=== PATIENT | male | born 1960 | race Caucasian/White ===

== ENCOUNTER 2017-01-07 07:30 | Emergency (ER) | payer MEDICARE, OTHER ==
[~2017-01-07] VITALS: Ht 182.9 cm; Wt 93.0 kg
[~2017-01-07 07:30] MED LIST: FLON0.053; LOVA20TA PO; OMEG500C OR; PRIN20TA2 PO; ST JTAB PO; TAB-TAB PO; TOPI25TA2 OR; TOPR25TA2 PO
[2017-01-07 07:35] VITALS: BP 137/92; PULSE 88; RESP 14; TEMP 98.4; O2SAT 96
[2017-01-07 08:30] VITALS: BP 140/86; PULSE 80; RESP 16; O2SAT 96
[2017-01-07] MEDS ORDERED: MULT1TAB84 PO (08:44)
[2017-01-07] MEDS ORDERED: FISH1000 PO (08:44)
[2017-01-07] MEDS ORDERED: TOPA50TA7 PO (08:44)
[2017-01-07] MEDS ORDERED: ASPI-110 PO (08:44)
[2017-01-07] MEDS ORDERED: METO25TA6 PO (08:44)
[2017-01-07] MEDS ORDERED: ATOR10TA15 PO (08:44)
[2017-01-07] MEDS ORDERED: FLUT50SP EACH NARE (08:44)
[2017-01-07] MEDS ORDERED: LISI-515 PO (08:44)
[2017-01-07] MEDS ORDERED: AZIT250T3 PO (08:55)
[2017-01-07] MEDS ORDERED: VENTAER INH (08:55)
[2017-01-07] MEDS ORDERED: PRED-503 PO (08:55)
--- NOTE | 2017-01-07 08:56 | PD ---
HPI Chief Complaint: Respiratory Symptoms Time Seen by Provider: 08:37 Travel History International Travel<30 days: No Contact w/Intl Traveler<30days: No Traveled to known affect area: No History of Present Illness HPI Is a 56-year-old male presents to the emergency department complaining that he has had productive cough and wheezing for the past for 5 days. He had a colonoscopy done 5 days ago, routine screening. He had what sounds like propofol anesthesia with no endotracheal tube. He states once acute nasal cane rule out afterwards he started having sputum production and cough. He said cough productive of a mild amount of sputum since then. No fevers or chills. No shortness of breath. Occasional mild chest pain. Denies any history of tobacco use. Had otherwise been feeling well. History Past Medical History Narrative Medical Hypertension Seizures History of brain tumor Tetanus Vaccination: Unknown Social History Alcohol Use: Yes (WEEK[employer]) Tobacco Use: No Allergies-Medications (Allergen,Severity, Reaction): Coded Allergies: No Known Allergies (Verified , 01/07/17) Reported Meds & Prescriptions Reported Meds & Active Scripts Active Deltasone (Prednisone) 20 Mg Tab 60 Mg PO DAILY 5 Days Azithromycin 250 Mg Tab 250 Mg PO DAILY 4 Days Ventolin Hfa 18 GM Inh (Albuterol Sulfate) 90 Mcg/Act Aer 2 Puff INH Q4-6H PRN Reported Aspirin 81 (Aspirin) 81 Mg Tabdr 81 Mg PO DAILY Topamax (Topiramate) 50 Mg Tab 50 Mg PO BID Fluticasone Nasal [place] 50 Mcg/Act Naspr 50 Mcg EACH NARE HS 50 mcg/spray Metoprolol Succinate ER 24 HR (Metoprolol Succinate) 25 Mg Tab 25 Mg PO HS Lisinopril 20 Mg Tab 20 Mg PO DAILY Atorvastatin (Atorvastatin Calcium) 10 Mg Tab 10 Mg PO HS Multivitamin Adults (Multiple Vitamins W/ Minerals) 1 Tab 1 Tab PO DAILY Fish Oil ([place]-3 Fatty Acids) 1,000 Mg Cap 1,000 Mg PO DAILY Review of Systems Except as stated in HPI: all other systems reviewed are Neg Physical Exam Narrative GENERAL: Well-appearing 56-year-old man, no acute distress. SKIN: Warm and dry. CARDIOVASCULAR: Regular rate and rhythm. No murmur appreciated. RESPIRATORY: No respiratory distress. Prominent coarse wheezing throughout the posterior lung [place] with prolonged expiratory phase. GASTROINTESTINAL: Abdomen soft, non-tender, nondistended. Hepatic and splenic margins not palpable. MUSCULOSKELETAL: No obvious deformities. No edema. NEUROLOGICAL: Awake and alert. No obvious cranial nerve deficits. Motor grossly within normal limits. Normal speech. PSYCHIATRIC: Appropriate mood and affect; insight and judgment normal. Data Data Last Documented VS Vital Signs Date Time Temp Pulse Resp B/P Pulse Ox O2 Delivery O2 Flow Rate FiO2 01/07/17 08:35 16 96 Room Air 01/07/17 08:30 80 140/86 01/07/17 07:35 98.4 Orders Chest, Single Ap (01/07/17 08:49) Sodium Chloride 0.9% Flush (Ns Flush) (01/07/17 09:00) Albuterol-Ipratropium Neb (Duoneb Neb) (01/07/17 09:00) Prednisone (Deltasone) (01/07/17 09:00) Azithromycin (Zithromax) (01/07/17 09:00) MDM Medical Decision Making Medical Screen Exam Complete: Yes Emergency Medical Condition: Yes Interpretation(s) My review of chest x-ray: Negative. Differential Diagnosis Bronchitis, aspiration, bronchiolitis, pneumonia, asthma, COPD, other Narrative Course Medical decision making INITIAL: Is a 56-year-old man who presents to the emergency department complaining of productive cough and wheezing. He has audible wheezing on exam. Denies any history of asthma or smoking. Symptoms started after colonoscopy. He may have had some aspiration event. We'll check x-ray. We'll give him bronchodilators steroids antibiotics. Likely discharge for outpatient follow- up. Diagnosis Primary Impression: Bronchitis Additional Impression: Reactive airway disease Qualified Code: J45.20 - Reactive airway disease, mild intermittent, uncomplicated Additional Instructions: Use inhaler every 4-6 hours until symptoms resolve. Take prednisone as prescribed. Take azithromycin as prescribed. Follow-up with your primary doctor in 3-5 days if you're not completely improved. Return to the emergency department for any new or worsening symptoms. Med/Other Pt SpecificInfo: Prescription(s) given Scripts Prednisone (Deltasone)20 Mg Tab60 Mg PO DAILY 5 Days Prov:Paulie Toussaint MD 01/07/17 Azithromycin 250 Mg [id number] Mg PO DAILY 4 Days Prov:Paulie Toussaint MD 01/07/17 Albuterol 18 GM Inh (Ventolin Hfa 18 GM Inh)90 Mcg/Act Aer2 Puff INH Q4-6H PRN ( SHORTNESS OF BREATH) #1 INHALER Prov:Paulie Toussaint MD 01/07/17 Disposition: 01 DISCHARGE HOME Condition: Stable Paulie Toussaint MD Jan 07, 2017 08:56
[2017-01-07] MEDS ORDERED: SODIUM CHLORIDE 0.9% FLUSH 10 ML FLUSH IVF PRN (09:00)
[2017-01-07] MEDS ORDERED: AZITHROMYCIN 250 MG TAB PO ONE (09:00)
[2017-01-07] MEDS ORDERED: RESP: ALBUTEROL 2.5 MG/IPRATROPIUM 0.5 MG NEB (SCH) INH ONE (09:00)
[2017-01-07] MEDS ORDERED: predniSONE 20 MG TAB PO ONE (09:00)
--- NOTE | 2017-01-07 09:43 | RADHPO ---
EXAM DATE/TIME: 01/07/2017 09:03 [facility] COMPARISON: No previous studies available for comparison. INDICATIONS : Cough, chest pain since Tuesday after colonscopy. MEDICAL HISTORY : None. SURGICAL HISTORY : None. ENCOUNTER: Initial ACUITY: 4 - 6 days PAIN SCORE: 5/10 LOCATION: Bilateral chest FINDINGS: A single view of the chest demonstrates the lungs to be symmetrically aerated without evidence of mas s, infiltrate or effusion. The cardiomediastinal contours are unremarkable. Osseous structures are intact. CONCLUSION: No acute disease. Douglas Dias MD on January 07, 2017 at 9:41 Board Certified Radiologist. This report was verified electronically.
[2017-01-07 09:52] VITALS: BP 136/88
== END 2017-01-07 09:55 | disposition home or self-care (01) ==
LOC: PHED 07:30
DX: J40 Bronchitis, not specified as acute or chronic (principal); J45.909 Unspecified asthma, uncomplicated; I10 Essential (primary) hypertension; R56.9 Unspecified convulsions
CPT/HCPCS: 71010; 94664; 99283; J7512

== ENCOUNTER 2017-04-02 21:00 | Inpatient (IN) | payer OTHER, MEDICARE ==
[~2017-04-02] VITALS: Ht 182.9 cm; Wt 96.2 kg
[~2017-04-02 21:00] MED LIST changes: +ASPI-110 PO; +ATOR10TA15 PO; +AZIT250T3 PO; +FISH1000 PO; -FLON0.053; +FLUT50SP EACH NARE; +LISI-515 PO; -LOVA20TA PO; +METO25TA6 PO; +MULT1TAB84 PO; -OMEG500C OR; +PRED-503 PO; -PRIN20TA2 PO; -ST JTAB PO; -TAB-TAB PO; +TOPA50TA7 PO; -TOPI25TA2 OR; -TOPR25TA2 PO; +VENTAER INH
[2017-04-02 21:03] VITALS: BP 87/51; PULSE 65; RESP 14; TEMP 97.5; O2SAT 95
[2017-04-02 21:12] VITALS: O2SAT 98
[2017-04-02] MEDS ORDERED: SODIUM CHLORIDE 0.9% FLUSH 10 ML FLUSH IVF PRN (21:15)
[2017-04-02] MEDS ORDERED: SODIUM CHLOR 0.9% 1000 ML INJ 1,000 ML IV ONE ×2 (21:15)
[2017-04-02 21:30] LABS: AUTOMATED NEUTROPHIL # 4.1 TH/MM3 (1.8-7.7); BASOPHIL # 0.1 TH/MM3 (0-0.2); BASOPHIL % 1.4 % (0.0-2.0); EOSINOPHIL # 0.3 TH/MM3 (0-0.4); HEMATOCRIT 38.4 % (39.0-51.0); HEMO FLAGS DIFF FINAL; LYMPH % 33.9 % (9.0-44.0); LYMPHOCYTE # 2.9 TH/MM3 (1.0-4.8); MEAN CELL VOLUME 86.7 FL (80.0-100.0); MEAN CORPUSCULAR HEMOGLOBIN 29.6 PG (27.0-34.0); MEAN CORPUSCULAR HGB CONC 34.2 % (32.0-36.0); MONO % 13.1 % (0.0-8.0); NEUT % 48.6 % (16.0-70.0); PLATELET COUNT 230 TH/MM3 (150-450); RED BLOOD COUNT 4.43 MIL/MM3 (4.50-5.90); WHITE BLOOD COUNT 8.5 TH/MM3 (4.0-11.0)
--- NOTE | 2017-04-02 21:36 | RADRPT ---
EXAM DATE/TIME: 04/02/2017 21:05 [facility] COMPARISON: No previous studies available for comparison. INDICATIONS : Syncope. Seizure. MEDICAL HISTORY : None. SURGICAL HISTORY : None. ENCOUNTER: Initial ACUITY: 1 day PAIN SCORE: 0/10 LOCATION: Bilateral chest FINDINGS: There is mild consolidation of the left lung base. Right lung is clear. No pleural effusion or pneumo thorax or pneumothorax on either side. Heart size stable, within normal limits. CONCLUSION: Left base pneumonia. Сергей Soriano MD on April 02, 2017 at 21:32 Board Certified Radiologist. This report was verified electronically.
[2017-04-02 21:45] VITALS: BP 116/70; PULSE 80; RESP 14; O2SAT 99
--- NOTE | 2017-04-02 21:50 | RADRPT ---
EXAM DATE/TIME: 04/02/2017 21:32 [facility] COMPARISON: No previous studies available for comparison. INDICATIONS : Syncopal episode. RADIATION DOSE: 49.37 CTDIvol (mGy) MEDICAL HISTORY : Seizures. Hypertension. Cardiovascular disease SURGICAL HISTORY : Craniotomy. Brain tumor resection ENCOUNTER: Initial ACUITY: 1 day PAIN SCALE: 3/10 LOCATION: cranial TECHNIQUE: Multiple contiguous axial images were obtained of the head. Using automated exposure control and adj ustment of the mA and/or kV according to patient size, radiation dose was kept as low as reasonably a chievable to obtain optimal diagnostic quality images. FINDINGS: CEREBRUM: The ventricles are normal for age. No evidence of midline shift, mass lesion, hemorrhage or acute in farction. No extra-axial fluid collections are seen. Chronic encephalomalacia of the left frontal lo be noted. POSTERIOR FOSSA: The cerebellum and brainstem are intact. The 4th ventricle is midline. The cerebellopontine angle i s unremarkable. EXTRACRANIAL: The visualized portion of the orbits is intact. SKULL: Previous left frontal craniotomy. CONCLUSION: No acute intracranial abnormality. Previous left frontal craniotomy and with chronic postsurgical enc ephalomalacia of the left frontal lobe. No recurrent mass demonstrated. Сергей Soriano MD on April 02, 2017 at 21:45 Board Certified Radiologist. This report was verified electronically.
[2017-04-02 21:58] LABS: ALT (GPT) 26 U/L (12-78); ANION GAP 12 MEQ/L (5-15); AST (GOT) 13 U/L (15-37); BICARBONATE 18.7 MEQ/L (21.0-32.0); BLOOD UREA NITROGEN 16 MG/DL (7-18); CHLORIDE 108 MEQ/L (98-107); GLOMERULAR FILTRATION RATE 55 ML/MIN (>89); MAGNESIUM 2.2 MG/DL (1.5-2.5); POTASSIUM 3.2 MEQ/L (3.5-5.1); SODIUM (NA) 139 MEQ/L (136-145)
[2017-04-02 22:01] LABS: ACETAMINOPHEN 2.9 MCG/ML (10.0-30.0); ALKALINE PHOSPHATASE 70 U/L (45-117); TOTAL BILIRUBIN ADULT 0.3 MG/DL (0.2-1.0)
[2017-04-02 22:05] VITALS: BP 100/65; PULSE 75; RESP 14; O2SAT 99
[2017-04-02 22:35] VITALS: BP 104/72; PULSE 70; RESP 14; O2SAT 100
--- NOTE | 2017-04-02 22:47 | PD ---
HPI Chief Complaint: Seizure Time Seen by Provider: 21:05 Travel History International Travel<30 days: No Contact w/Intl Traveler<30days: No Traveled to known affect area: No History of Present Illness HPI 56-year-old male presents to the emergency department by EMS transport from home where reportedly he was witnessed to have 2 seizures. Patient reportedly has history of seizure disorder. Patient with previous brain tumor. Patient with previous craniotomy. Patient with previous radiation therapy. Patient no longer under treatment for brain tumor. Patient states that he also has history of hypertension. Patient reports he takes Topamax lisinopril and metoprolol but has not taken his evening metoprolol. Patient was noted by EMS to have normal range blood sugar and was hypotensive at the scene. Patient received 1 L normal saline bolus by EMS. Patient has had no further seizure activity per EMS and no administration of Ativan or other medications other than IV fluids. Patient is not reported to have any head injury. Paramedics report that they found the patient sitting on the porch with family members family members are present at this time to provide any further history. Patient reports that he is not having any pain at this time does not report any head pain neck pain back pain chest pain rib pain abdominal pain or extremity pain. Patient was noted to have contusion to the tongue. Patient was not reported to be incontinent but appeared to have some emesis on his shorts. No witnessed emesis per EMS. Patient admits to drinking alcohol today. PFSH Past Medical History Narrative Medical Anxiety hypertension brain tumor/oligodendroglioma, seizure craniotomy; alcohol use: nursing notes reviewed Anxiety: Yes Cardiovascular Problems: Yes High Cholesterol: Yes Gastrointestinal Disorders: Yes Genitourinary: No Hypertension: Yes Musculoskeletal: No Neurologic: Yes Psychiatric: Yes Immunizations Current: Yes Seizures: Yes Tetanus Vaccination: Never Vaccinated Influenza Vaccination: Yes Past Surgical History Neurologic Surgery: Yes (BRAIN TUMOR REMOVAL) Social History Alcohol Use: Yes (WEEK[employer]) Tobacco Use: No Substance Use: No Allergies-Medications (Allergen,Severity, Reaction): Coded Allergies: No Known Allergies (Verified , 04/02/17) Reported Meds & Prescriptions Reported Meds & Active Scripts Active Ventolin Hfa 18 GM Inh (Albuterol Sulfate) 90 Mcg/Act Aer 2 Puff INH Q4-6H PRN Reported Aspirin 81 (Aspirin) 81 Mg Tabdr 81 Mg PO DAILY Topamax (Topiramate) 50 Mg Tab 50 Mg PO BID Fluticasone Nasal [place] 50 Mcg/Act Naspr 50 Mcg EACH NARE HS 50 mcg/spray Metoprolol Succinate ER 24 HR (Metoprolol Succinate) 25 Mg Tab 25 Mg PO HS Lisinopril 20 Mg Tab 20 Mg PO DAILY Atorvastatin (Atorvastatin Calcium) 10 Mg Tab 10 Mg PO HS Review of Systems Except as stated in HPI: all other systems reviewed are Neg General / Constitutional: No: Fever Eyes: No: Visual changes HENT: Positive: Headaches Cardiovascular: No: Chest Pain or Discomfort Respiratory: No: Shortness of Breath Gastrointestinal: No: Vomiting, Abdominal Pain Genitourinary: No: Flank Pain Musculoskeletal: No: Pain Skin: No Rash Neurologic: Positive: Weakness Psychiatric: No: Anxiety Hematologic/Lymphatic: No: Easy Bruising Physical Exam Narrative GENERAL: Well-developed well-nourished male in no acute respiratory distress; GCS is 15 appears mildly drowsy. SKIN: Warm and dry. HEAD: Atraumatic. Normocephalic. EYES: Pupils equal and round. No scleral icterus. No injection or drainage. ENT: No nasal bleeding or discharge. Mucous membranes pink and moist. Contusion to lower lip laceration no tongue contusion. Tympanic membranes no hemotympanum. NECK: Trachea midline. No JVD. Nontender to direct palpation along the midline and no bony step-off; no meningismus. CARDIOVASCULAR: Regular rate and rhythm. RESPIRATORY: No accessory muscle use. Clear to auscultation. Breath sounds equal bilaterally. GASTROINTESTINAL: Abdomen soft, non-tender, nondistended. Hepatic and splenic margins not palpable. MUSCULOSKELETAL: Extremities without clubbing, cyanosis, or edema. No obvious deformities. NEUROLOGICAL: Awake and alert. No obvious cranial nerve deficits. Motor grossly within normal limits. Five out of 5 muscle strength in the arms and legs. Normal speech. PSYCHIATRIC: Appropriate mood and affect; insight and judgment normal. Data Data Last Documented VS Vital Signs Date Time Temp Pulse Resp B/P Pulse Ox O2 Delivery O2 Flow Rate FiO2 04/03/17 00:05 95 16 121/79 100 Nasal Cannula 2 04/02/17 21:03 97.5 Orders Complete Blood Count With Diff (04/02/17 21:05) Alcohol (Ethanol) (04/02/17 21:05) Drug Screen, Random Urine (04/02/17 21:05) Electrocardiogram (04/02/17 ) Ct Brain W/O Iv Contrast(Rout) (04/02/17 ) Blood Glucose (04/02/17 21:05) Ecg Monitoring (04/02/17 21:05) Iv Access Insert/Monitor (04/02/17 21:05) Oximetry (04/02/17 21:05) Comprehensive Metabolic Panel (04/02/17 21:05) Sodium Chloride 0.9% Flush (Ns Flush) (04/02/17 21:15) Urinalysis - C+S If Indicated (04/02/17 21:05) Blood Culture (04/02/17 21:05) Salicylates (Aspirin) (04/02/17 21:05) Tylenol (Acetaminophen) (04/02/17 21:05) Lactic Acid Sepsis Protocol (04/02/17 21:05) Ammonia (04/02/17 21:05) Sodium Chlor 0.9% 1000 Ml Inj (Ns 1000 M (04/02/17 21:15) Sodium Chlor 0.9% 1000 Ml Inj (Ns 1000 M (04/02/17 21:15) Magnesium (Mg) (04/02/17 21:05) Chest, Single Ap (04/02/17 ) Troponin I (04/02/17 21:05) Ceftriaxone Inj (Rocephin Inj) (04/02/17 23:30) Azithromycin Inj (Zithromax Inj) (04/02/17 23:30) Admit Order (Ed Use Only) (04/03/17 ) ^ Saline Lock (04/03/17 00:22) Resp Oxygen Freddy C Titrat 1-4 L (04/03/17 ) Notify Dr: Other (04/03/17 00:22) Sodium Chloride 0.9% Flush (Ns Flush) (04/03/17 09:00) Sodium Chloride 0.9% Flush (Ns Flush) (04/03/17 00:30) Labs Laboratory Tests Test 04/02/17 04/02/17 04/02/17 21:10 23:00 23:50 White Blood Count 8.5 TH/MM3 Red Blood Count 4.43 MIL/MM3 Hemoglobin 13.1 GM/DL Hematocrit 38.4 % Mean Corpuscular Volume 86.7 FL Mean Corpuscular Hemoglobin 29.6 PG Mean Corpuscular Hemoglobin 34.2 % Concent Red Cell Distribution Width 13.0 % Platelet Count 230 TH/MM3 Mean Platelet Volume 10.1 FL Neutrophils (%) (Auto) 48.6 % Lymphocytes (%) (Auto) 33.9 % Monocytes (%) (Auto) 13.1 % Eosinophils (%) (Auto) 3.0 % Basophils (%) (Auto) 1.4 % Neutrophils # (Auto) 4.1 TH/MM3 Lymphocytes # (Auto) 2.9 TH/MM3 Monocytes # (Auto) 1.1 TH/MM3 Eosinophils # (Auto) 0.3 TH/MM3 Basophils # (Auto) 0.1 TH/MM3 CBC Comment DIFF FINAL Differential Comment Sodium Level 139 MEQ/L Potassium Level 3.2 MEQ/L Chloride Level 108 MEQ/L Carbon Dioxide Level 18.7 MEQ/L Anion Gap 12 MEQ/L Blood Urea Nitrogen 16 MG/DL Creatinine 1.35 MG/DL Estimat Glomerular Filtration 55 ML/MIN Rate Random Glucose 144 MG/DL Lactic Acid Level 2.4 mmol/L 2.5 mmol/L Calcium Level 8.1 MG/DL Magnesium Level 2.2 MG/DL Total Bilirubin 0.3 MG/DL Aspartate Amino Transf 13 U/L (AST/SGOT) Alanine Aminotransferase 26 U/L (ALT/SGPT) Alkaline Phosphatase 70 U/L Ammonia 42 MCMOL/L Troponin I LESS THAN 0.02 NG/ML Total Protein 6.0 GM/DL Albumin 3.5 GM/DL Salicylates Level LESS THAN 1.7 MG/DL Acetaminophen Level 2.9 MCG/ML Ethyl Alcohol Level 58 MG/DL Urine Color LIGHT-YELLOW Urine Turbidity CLEAR Urine pH 6.5 Urine Specific [place] 1.009 Urine Protein NEG mg/dL Urine Glucose (UA) NEG mg/dL Urine Ketones NEG mg/dL Urine Occult Blood NEG Urine Nitrite NEG Urine Bilirubin NEG Urine Urobilinogen LESS THAN 2.0 MG/DL Urine Leukocyte Esterase NEG Urine RBC 2 /hpf Urine WBC LESS THAN 1 /hpf Urine Hyaline Casts 7 /lpf Urine Mucus FEW /lpf Microscopic Urinalysis Comment CULT NOT INDICATED Urine Opiates Screen NEG Urine Barbiturates Screen NEG Urine Amphetamines Screen NEG Urine Benzodiazepines Screen NEG Urine Cocaine Screen NEG Urine Cannabinoids Screen POS MDM Medical Decision Making Medical Screen Exam Complete: Yes Emergency Medical Condition: Yes Medical Record Reviewed: Yes Interpretation(s) EKG: Sinus bradycardia rate [address] elevation injury pattern or ectopy noted lactic acid: 2.[address] 04/02/17 0000 Signed Impressions: Service Date/Time: Sunday, April 02, 2017 21:32 - CONCLUSION: No acute intracranial abnormality. 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 No recurrent mass demonstrated. Сергей Soriano MD Chest X-Ray 04/02/17 0000 Signed Impressions: Service Date/Time: Sunday, April 02, 2017 21:05 - CONCLUSION: Left base pneumonia. Сергей Soriano MD Differential Diagnosis Seizure, breakthrough seizure, syncope, alcohol induced seizure, status epilepticus, sepsis Narrative Course Patient reportedly here post seizure witnessed times to contact family members does not recall any prodrome and just feels drowsy at this time although able to relay most of his own history reportedly. Family members are not at bedside. Patient noted to be hypotensive received IV fluids en route by EMS and blood sugar reportedly in normal range per EMS. Additional blood glucose obtained at bedside. EKG performed reveals no acute ST elevation or injury pattern. Patient is noted to be hypotensive additional normal saline bolus 2 L administered no tachycardia. Patient is afebrile. Patient denies any recent febrile illness. Patient denies any pain at this time. Patient sent for imaging CT brain and we'll obtain chest x-ray Patient resting comfortably seizure precautions placed at bedside. Patient sent for CT brain noncontrast reveals no acute abnormality evidence of prior craniotomy with encephalomalacia no mass identified no bleed area CBC was automated differential found be in normal range except for 13% monocytosis nonspecific post seizure chemistries remarkable for bicarbonate 18.7 consistent with possible seizure activity along with mildly elevated ammonia 42. Patient is identified to have serum alcohol of 58. Family at bedside reports that patient has not been eating well lately recently performed a self administered bowel cleanse for possible constipation which caused him to possibly become very dehydrated. According to brother at bedside another brother was with him on the porch when he suddenly became very weak and slumped over he was assisted to the ground without any head trauma. Brother at bedside reports he thought that he briefly stops breathing so he administered one rescue breath and patient immediately awakened and heard family member stating they're calling 911 when she told them to not do that he was fine and then again reportedly slumped and required another reported rescue breaths and again came to and had no further episodes of syncope. Further at bedside states she did not witness any jerking but patient was stiff and with a fixed gaze other further bedside reports patient possibly being monitored ongoing for recent partial seizure/partial complex seizure. Patient does not seem to radiate this patient did have history of generalized tonic-clonic seizures at time of diagnosis of brain tumor was excised approximately [address] Mackay. Plan is to admit patient for observation blood pressure has improved after 3 L of normal saline although patient does remain with generalized weakness. Patient identified by chest x-ray to have possible left lower lobe infiltrate blood cultures had been obtained upon patient's arrival and presumptive IV antibiotic administered. Case discussed with on-call have his physician for generalized weakness possible breakthrough seizure versus syncope versus dehydration with chest x- ray imaging left base infiltrate and history of tonic-clonic seizure with alcohol ingestion. Physician Communication Physician Communication call placed to [facility] Diagnosis Primary Impression: Syncope and collapse Additional Impressions: Dehydration Lung infiltrate H/O tonic-clonic seizures Admitting Information Admitting Physician Requests: Observation Atiya Vicente MD Apr 02, 2017 22:47
[2017-04-02 23:05] VITALS: BP 118/69; PULSE 79; RESP 16; O2SAT 100
[2017-04-02 23:25] LABS: LACTIC ACID GHOST NOT REPORTABLE
[2017-04-02] MEDS ORDERED: AZITHROMYCIN INJ 500 MG in SODIUM CHLOR 0.9% 250 ML INJ 250 ML IV ONE (23:30)
[2017-04-02] MEDS ORDERED: cefTRIAXone INJ 1,000 MG in SODIUM CHLORIDE 0.9% INJ 100 ML IV ONE (23:30)
[2017-04-03] VITALS (11 sets, daily range): BP systolic 121–132; BP diastolic 66–83; PULSE 64–95; RESP 14–20; TEMP 97.9–99; O2SAT 96–100
[2017-04-03 00:08] LABS: AMPHETAMINE, URINE NEG (NEG); BARBITURATES, URINE NEG (NEG); COCAINE, URINE NEG (NEG)
[2017-04-03 00:09] LABS: BLOOD, URINE NEG (NEG); GLUCOSE,URINE NEG (NEG); HYALINE CAST, URINE 7 /lpf (RARE); KETONE, URINE NEG (NEG); MUCUS URINE FEW /lpf (OCC); NITRITE,URINE NEG (NEG); PH, URINE 6.5 (5.0-8.5); URINE COLOR LIGHT-YELLOW (YELLW/STRAW)
[2017-04-03 00:11] LABS: COMMENT (UR) CULT NOT INDICATED; CULTURE IF INDICATED CULT NOT INDICATED
[2017-04-03] MEDS ORDERED: SODIUM CHLORIDE 0.9% FLUSH 10 ML FLUSH IVF PRN (00:30)
[2017-04-03] MEDS ORDERED: POTASSIUM CHLORIDE 20 MEQ CONTROLLED RELEASE TAB PO ONE (00:30)
[2017-04-03] MEDS ORDERED: SENNOSIDES 8.6 MG TAB PO PRN (00:30)
[2017-04-03] MEDS ORDERED: ACETAMINOPHEN/HYDROcodone 325 MG/5 MG TAB PO PRN (00:30)
[2017-04-03] MEDS ORDERED: ACETAMINOPHEN 325 MG TAB PO PRN (00:30)
[2017-04-03] MEDS ORDERED: ONDANSETRON HCL 4 MG/2 ML VIAL IVP PRN (00:30)
[2017-04-03] MEDS ORDERED: BISACODYL 10 MG SUPP RECTAL PRN (00:30)
[2017-04-03] MEDS ORDERED: MAGNESIUM HYDROXIDE SUSP 30 ML CUP PO PRN (00:30)
[2017-04-03] MEDS ORDERED: SODIUM CHLORIDE 0.9% FLUSH 10 ML FLUSH IV FLUSH PRN (00:30)
[2017-04-03] MEDS ORDERED: LACTULOSE SYRUP 20 GM/30 ML CUP PO PRN (00:30)
[2017-04-03] MEDS ORDERED: ACETAMINOPHEN/HYDROcodone 325 MG/10 MG TAB PO PRN (00:30)
[2017-04-03] MEDS ORDERED: ALBUTEROL SULFATE 90 MCG/ACT HFA 18 GM INHALER INH PRN (00:45)
[2017-04-03] MEDS: SODIUM CHLOR 0.9% 1000 ML INJ 1,000 ML IV SCH ×4 (02:45→20:22)
--- NOTE | 2017-04-03 03:31 | HHI.HP ---
[facility] Paulie Galvan MD Admission Diagnosis syncope; h/o seizure; dehydration Diagnoses: (1) Syncope Diagnosis: Principal (2) PNA (pneumonia) Diagnosis: Principal (3) Dehydration Diagnosis: Principal (4) CURTIS (acute kidney injury) Diagnosis: Principal (5) Hypokalemia Diagnosis: Principal (6) Seizure disorder Diagnosis: Principal Travel History International Travel<30 Days: No Contact w/Intl Traveler <30 Da: No Traveled to Known Affected Are: No History of Present Illness This is a 56-year-old male with PMH of Anxiety, HTN, h/o Left Frontal Craniotomy for Tumor Resection and Seizure Disorder was brought to the ER by EMS secondary to AMS. Per initial report, pt noted to have witnessed seizure x2 , however upon further questioning and report from family members, pt had apparent syncopal event. Per pt, had been having ongoing weakness x2-3 wks, no fever, no chills. Today, had a few beers and felt acute weakness but doesn't recall any other events. Upon EMS arrival, pt noted to have BP 80's systolic, s /p 3L IVF total w/ BP 104/72, HR 70. Afebrile. O2 sat 100% on 2L NC. CBC unremarkable. K+ 3.2, creatinine 1.35, previously 0.86 on 03/28/13. Lactic Acid 2.4. Troponin negative. UA negative. Urine Drug Screen positive for Marijuana. Alcohol 58. Tylenol 2.9. Salicylate negative. CT Head w/ no acute findings, previous craniotomy w/ postsurgical changes. CXR w/ LLL PNA. S /p Rocephin/Zithro in ER. Review of Systems Except as stated in HPI: all other systems reviewed are Neg ROS: 14 point review of systems otherwise negative. Past Family Social History Past Medical History PMH: Anxiety, HTN, h/o Left Frontal Craniotomy for Tumor Resection and Seizure Disorder Past Surgical History PAST SURGICAL HISTORY: Craniotomy Allergies: Coded Allergies: No Known Allergies (Verified , 04/02/17) Family History PAST FAMILY HISTORY: Reviewed. No h/o DM or CAD Social History PAST SOCIAL HISTORY: Beer on weekends. Negative for tobacco or drugs. Physical Exam Vital Signs Vital Signs Date Time Temp Pulse Resp B/P Pulse Ox O2 Delivery O2 Flow Rate FiO2 04/03/17 03:01 98.4 85 20 129/75 100 04/03/17 00:05 95 16 121/79 100 Nasal Cannula 2 04/02/17 23:05 79 16 118/69 100 Nasal Cannula 2 04/02/17 22:35 70 14 104/72 100 Nasal Cannula 2 04/02/17 22:05 75 14 100/65 99 Nasal Cannula 2 04/02/17 21:45 80 14 116/70 99 Nasal Cannula 2 04/02/17 21:12 98 Nasal Cannula 2 04/02/17 21:03 97.5 65 14 87/51 95 Physical Exam PE: GENERAL: Middle-aged white male in no acute distress, somnolent but rouses easily and answers questions.. HEENT: PERRLA, EOMI. No scleral icterus or conjunctival pallor. No lid lag or facial droop. CARDIOVASCULAR: Regular rate and rhythm. No obvious murmurs to auscultation. No chest tenderness to palpation. RESPIRATORY: No obvious rhonchi or wheezing. Clear to auscultation. Breath sounds equal bilaterally. GASTROINTESTINAL: Abdomen soft, non-tender, nondistended. BS normal. MUSCULOSKELETAL: Extremities without clubbing, cyanosis, or edema. No obvious deformities. NEUROLOGICAL: Awake, alert and oriented x4. No focal neurologic deficits. Moving both upper and lower extremities spontaneously. Laboratory Laboratory Tests Test 04/02/17 04/02/17 04/02/17 21:10 23:00 23:50 White Blood Count 8.5 Red Blood Count 4.43 Hemoglobin 13.1 Hematocrit 38.4 Mean Corpuscular Volume 86.7 Mean Corpuscular Hemoglobin 29.6 Mean Corpuscular Hemoglobin 34.2 Concent Red Cell Distribution Width 13.0 Platelet Count 230 Mean Platelet Volume 10.1 Neutrophils (%) (Auto) 48.6 Lymphocytes (%) (Auto) 33.9 Monocytes (%) (Auto) 13.1 Eosinophils (%) (Auto) 3.0 Basophils (%) (Auto) 1.4 Neutrophils # (Auto) 4.1 Lymphocytes # (Auto) 2.9 Monocytes # (Auto) 1.1 Eosinophils # (Auto) 0.3 Basophils # (Auto) 0.1 CBC Comment DIFF FINAL Differential Comment Sodium Level 139 Potassium Level 3.2 Chloride Level 108 Carbon Dioxide Level 18.7 Anion Gap 12 Blood Urea Nitrogen 16 Creatinine 1.35 Estimat Glomerular Filtration 55 Rate Random Glucose 144 Lactic Acid Level 2.4 2.5 Calcium Level 8.1 Magnesium Level 2.2 Total Bilirubin 0.3 Aspartate Amino Transf 13 (AST/SGOT) Alanine Aminotransferase 26 (ALT/SGPT) Alkaline Phosphatase 70 Ammonia 42 Troponin I LESS THAN 0.02 Total Protein 6.0 Albumin 3.5 Salicylates Level LESS THAN 1.7 Acetaminophen Level 2.9 Ethyl Alcohol Level 58 Urine Color LIGHT-YELLOW Urine Turbidity CLEAR Urine pH 6.5 Urine Specific [place] 1.009 Urine Protein NEG Urine Glucose (UA) NEG Urine Ketones NEG Urine Occult Blood NEG Urine Nitrite NEG Urine Bilirubin NEG Urine Urobilinogen LESS THAN 2.0 Urine Leukocyte Esterase NEG Urine RBC 2 Urine WBC LESS THAN 1 Urine Hyaline Casts 7 Urine Mucus FEW Microscopic Urinalysis Comment CULT NOT INDICATED Urine Opiates Screen NEG Urine Barbiturates Screen NEG Urine Amphetamines Screen NEG Urine Benzodiazepines Screen NEG Urine Cocaine Screen NEG Urine Cannabinoids Screen POS Date/Time Procedure Status Source Growth 04/02/17 21:10 Aerobic Blood Culture Received Blood Peripheral Pending 04/02/17 21:10 Anaerobic Blood Culture Received Blood Peripheral Pending Result Diagram: 04/02/17210904/02/172109 Assessment and Plan Problem List: (1) Syncope ICD Code: R55 Status: Acute (2) PNA (pneumonia) ICD Code: J18.9 Status: Acute (3) CURTIS (acute kidney injury) ICD Code: N17.9 Status: Acute (4) Dehydration ICD Code: E86.0 Status: Acute (5) Seizure disorder ICD Code: G40.909 Status: Acute Assessment and Plan A/P: 1. Syncope: Likely secondary to dehydration, BP upon EMS arrival 80's systolic , s/p IVF w/ improvement. Admit for Observation, telemetry. Initial trop negative, will check serial cardiac enzymes, check Echo, IVF for hydration. 2. PNA: CXR w/ LLL PNA, images reviewed by me. S/p Rocephin/Zithro in ER, will continue w/ IV Abx. 3. CURTIS: Creatinine 1.35, previously 0.85 on 03/28/13, U/a negative for UTI, IVF for hydration, repeat labs in am. 4. Dehydration: As above, GFR 55, Creatinine elevated, continue w/ IVF. 5. Seizure Disorder: h/o Left Frontal Craniotomy for tumor resection 10yrs ago , on Topamax for prophylaxis, compliant w/ meds, no apparent seizure x10yrs, initial report of seizure activity x2, however unclear if accurate. CT Head w/ no acute findings, left craniotomy w/ postsurgical changes, images reviewed by me. Continue home medications. Seizure Precautions. 6. DVT Prophylaxis: SCD/Teds. 7. Social work for d/c planning as needed. 8. Case discussed w/ ER physician at length Elisa Vera MD Apr 03, 2017 03:31
[2017-04-03] MEDS ORDERED: SODIUM CHLORIDE 0.9% FLUSH 10 ML FLUSH IV FLUSH SCH (09:00)
[2017-04-03] MEDS: PIPERACIL-TAZO 3.375 GM PREMIX 50 ML IV SCH ×3 (09:16→21:13)
[2017-04-03] MEDS: TOPIRAMATE 25 MG TAB PO SCH ×2 (09:17→21:14)
[2017-04-03] MEDS: SODIUM CHLORIDE 0.9% FLUSH 10 ML FLUSH IV FLUSH SCH ×2 (09:17→21:14)
[2017-04-03] MEDS: DOCUSATE SODIUM 50 MG/SENNA 8.6 MG TAB PO SCH ×2 (09:17→21:14)
--- NOTE | 2017-04-03 10:09 | HHI.PR ---
Subjective Remarks Follow-up for syncope. The patient states that yesterday he was feeling lightheaded and dizzy like he was going to pass out, and subsequently lost consciousness. He states he was told he was out for about 2 minutes. He denies any prolonged confusion. He denies any chest pain or shortness of breath. He denies any recent illness, fever, chills, cough. He does report a history of partial seizures and migraines that manifested as extremity tingling. He states that he has been well controlled on his Topamax. He denies any recent medication changes. He does state that he did have three 16 ounce beers yesterday, which is typical for him only on the weekends. He worked with PT today and denies any problems with ambulation, lightheadedness, or dizziness. His neurologist is at . Objective Vitals Vital Signs Date Time Temp Pulse Resp B/P Pulse Ox O2 Delivery O2 Flow Rate FiO2 04/03/17 08:32 68 129/66 125/75 04/03/17 07:54 100 Nasal Cannula 2.00 04/03/17 07:45 99.0 76 18 121/77 100 04/03/17 06:44 Nasal Cannula 2.00 04/03/17 03:30 70 04/03/17 03:01 98.4 85 20 129/75 100 04/03/17 00:05 95 16 121/79 100 Nasal Cannula 2 04/02/17 23:05 79 16 118/69 100 Nasal Cannula 2 04/02/17 22:35 70 14 104/72 100 Nasal Cannula 2 04/02/17 22:05 75 14 100/65 99 Nasal Cannula 2 04/02/17 21:45 80 14 116/70 99 Nasal Cannula 2 04/02/17 21:12 98 Nasal Cannula 2 04/02/17 21:03 97.5 65 14 87/51 95 I/O 04/02/17 04/02/17 04/02/17 04/03/17 04/03/17 04/03/17 07:00 15:00 23:00 07:00 15:00 23:00 Output Total 700 ml Balance -700 ml Output Urine Total 700 ml Result Diagram: 04/02/17210904/02/172109 Imaging Last Impressions Head CT 04/02/17 0000 Signed Impressions: Service Date/Time: Sunday, April 02, 2017 21:32 - CONCLUSION: No acute intracranial abnormality. 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 No recurrent mass demonstrated. Сергей Soriano MD Chest X-Ray 04/02/17 0000 Signed Impressions: Service Date/Time: Sunday, April 02, 2017 21:05 - CONCLUSION: Left base pneumonia. Сергей Soriano MD Objective Remarks GENERAL: Well-developed well-nourished. In no acute distress. SKIN: Warm and dry. No lesions noted. HEENT: Normocephalic. Pupils equal and round. Mucous membranes pink and moist. CARDIOVASCULAR: Regular rate and rhythm. No murmur appreciated. RESPIRATORY: No accessory muscle use. Clear to auscultation. Left basilar crackles. GASTROINTESTINAL: Abdomen soft, non-tender, nondistended. Bowel sounds x4. MUSCULOSKELETAL: No obvious deformities. No clubbing or cyanosis. No edema. NEUROLOGICAL: Awake and alert. No focal neurological deficits. Moves upper and lower extremities spontaneously. Normal speech. PSYCHIATRIC: Appropriate mood and affect; insight and judgment normal. A/P Problem List: (1) Syncope ICD Code: R55 Status: Acute (2) PNA (pneumonia) ICD Code: J18.9 Status: Acute (3) CURTIS (acute kidney injury) ICD Code: N17.9 Status: Acute (4) Dehydration ICD Code: E86.0 Status: Acute (5) Seizure disorder ICD Code: G40.909 Status: Acute Assessment and Plan 56-year-old male with PMH of Anxiety, HTN, h/o Left Frontal Craniotomy for Tumor Resection and Seizure Disorder who presented after syncopal episode Syncope: Possibly secondary to dehydration vs seizure vs other. Reviewed: Troponin negative 2, trending. Creatinine 1.35, bicarbonate 18.7, glucose 144, lactic acid 2.5. Alcohol 58. UDS positive for cannabis. Head CT with previous craniotomy and postsurgical encephalomalacia of the left frontal lobe, no acute findings. EKG with NSR, rate 58, no significant change from previous EKG in 2003. -Echocardiogram. -EEG. -Monitor on telemetry. -Consult neurology Possible aspiration pneumonitis: Asymptomatic. CXR personally reviewed w/ vague LLL infiltrate. Afebrile with no leukocytosis. Cover with IV Zosyn for now, plan for transition to oral Levaquin if no further signs of infection or respiratory symptoms. Incentive spirometry. Albuterol as needed. CURTIS: Creatinine 1.35, previously 0.85 on 03/28/13. IVF for hydration, repeat labs pending. Seizure Disorder/migraines: h/o Left Frontal Craniotomy for tumor resection 10yrs ago, on Topamax for prophylaxis, compliant w/ meds, no apparent seizure x10yrs. Continue home medications. Seizure Precautions. Neurology consulted as above. Elevated ammonia: Ammonia 42. LFTs essentially within normal limits. Suspect secondary to dehydration. Repeat ammonia level. Hypertension: BP was soft at admission. The patient is not orthostatic. Holding lisinopril with CURTIS. Resume metoprolol as tolerated. Monitor. Hypokalemia: Potassium 3.2 at admission. Replaced in the ED. Magnesium within normal limits. Repeat labs pending. DVT Prophylaxis: SCD/Teds. Discharge Planning D/W case management. Meets inpatient criteria. Gage Macdonald Apr 03, 2017 10:08
[2017-04-03 10:59] LABS: AUTOMATED NEUTROPHIL # 5.9 TH/MM3 (1.8-7.7); BASOPHIL % 0.4 % (0.0-2.0); EOSINOPHIL # 0.1 TH/MM3 (0-0.4); EOSINOPHIL % 1.4 % (0.0-4.0); HEMATOCRIT 39.7 % (39.0-51.0); HEMO FLAGS DIFF FINAL; LYMPH % 13.3 % (9.0-44.0); MEAN CELL VOLUME 87.3 FL (80.0-100.0); MEAN CORPUSCULAR HEMOGLOBIN 29.4 PG (27.0-34.0); MEAN CORPUSCULAR HGB CONC 33.7 % (32.0-36.0); MONO % 9.6 % (0.0-8.0); NEUT % 75.3 % (16.0-70.0); PLATELET COUNT 172 TH/MM3 (150-450); RED BLOOD COUNT 4.55 MIL/MM3 (4.50-5.90); RED CELL DISTRIBUTION WIDTH 12.8 % (11.6-17.2); WHITE BLOOD COUNT 7.8 TH/MM3 (4.0-11.0)
[2017-04-03 11:15] LABS: ANION GAP 8 MEQ/L (5-15); AST (GOT) 13 U/L (15-37); BICARBONATE 22.1 MEQ/L (21.0-32.0); BLOOD UREA NITROGEN 11 MG/DL (7-18); CHLORIDE 114 MEQ/L (98-107); POTASSIUM 3.9 MEQ/L (3.5-5.1); SODIUM (NA) 144 MEQ/L (136-145)
[2017-04-03 11:21] LABS: ALKALINE PHOSPHATASE 79 U/L (45-117); ALT (GPT) 24 U/L (12-78); GLOMERULAR FILTRATION RATE 77 ML/MIN (>89); TOTAL BILIRUBIN ADULT 0.5 MG/DL (0.2-1.0)
--- NOTE | 2017-04-03 12:17 | EKG ---
Date Performed: 04/02/2017 Time Performed: 21:08:31 PTAGE: 56 years EKG: SINUS BRADYCARDIA BORDERLINE ECG PREVIOUS TRACING : 05/16/2004 09.51 COMPARED WITH PREVIOUS EKG T-WAVE ABNORMALITIES ARE NO ORLY JORGE PRESENT DOCTOR: Clifton Marte Interpretating Date/Time 04/03/2017 12:13:33
--- NOTE | 2017-04-03 15:53 | ECHRPT ---
Indication: Cardiomyopathy, unspecified CONCLUSIONS Normal left ventricular size and wall thickness. The left ventricular systolic function is normal wi th an estimated ejection fraction in the range of 60-65%. Left ventricular diastolic function parameters a re normal. BP: 121 / 77 HR: 76 Rhythm: Sinus MEASUREMENTS (Male / Female) Normal Values Technical Quality:Good 2D ECHO LV Diastolic Diameter PLAX 4.9 cm 4.2 - 5.9 / 3.9 - 5.3 cm LV Systolic Diameter PLAX 3.6 cm IVS Diastolic Thickness 1.1 cm 0.6 - 1.0 / 0.6 - 0.9 cm LVPW Diastolic Thickness 1.1 cm 0.6 - 1.0 / 0.6 - 0.9 cm LV Relative Wall Thickness 0.5 LVOT Diameter 2.4 cm M-MODE Aortic Root Diameter MM 3.6 cm LA Systolic Diameter MM 2.9 cm LA Ao Ratio MM 0.8 AV Cusp Separation MM 2.1 cm DOPPLER AV Peak Velocity 119.0 cm/s AV Peak Gradient 5.7 mmHg AI Peak Velocity 244.0 cm/s AI Peak Gradient 23.8 mmHg AI Pressure Half Time 671.0 ms LVOT Peak Velocity 99.2 cm/s LVOT Peak Gradient 3.9 mmHg AV Area Cont Eq pk 3.8 cm MR Peak Velocity 305.0 cm/s MR Peak Gradient 37.2 mmHg Mitral E Point Velocity 84.9 cm/s Mitral A Point Velocity 80.0 cm/s Mitral E to A Ratio 1.1 LV E' Lateral Velocity 8.9 cm/s Mitral E to LV E' Lateral Ratio 9.6 LV E' Septal Velocity 9.9 cm/s Mitral E to LV E' Septal Ratio 8.5 PV Peak Velocity 90.9 cm/s PV Peak Gradient 3.3 mmHg FINDINGS LEFT VENTRICLE Normal left ventricular size and wall thickness. The left ventricular systolic function is normal wi th an estimated ejection fraction in the range of 60-65%. Left ventricular diastolic function parameters a re normal. Structurally normal mitral valve. Trace mitral valve regurgitation. RIGHT VENTRICLE Normal right ventricular size and systolic function. LEFT ATRIUM The left atrial size is normal. RIGHT ATRIUM The right atrial size is normal. ATRIAL SEPTUM Normal atrial septal thickness without atrial level shunting by limited color doppler interrogation. AORTA The aortic root and proximal ascending aorta are normal in size on limited imaging. MITRAL VALVE Structurally normal mitral valve. Trace mitral valve regurgitation. AORTIC VALVE Trileaflet aortic valve. No aortic valve stenosis or regurgitation. TRICUSPID VALVE Structurally normal tricuspid valve. No tricuspid valve stenosis or regurgitation. PULMONARY VALVE The pulmonary valve is not well visualized. VESSELS The inferior vena cava is normal in size. PERICARDIUM No pericardial effusion. Amari Patel MD, FACC, [facility] (Electronically Signed) Final Date:03 April 2017 15:52 Amended: 05 April 2017 14:10
--- NOTE | 2017-04-03 16:23 | MB ---
cc: JAYMIE CARRERA M.D. DATE OF CONSULTATION: 04/03/2017. REASON FOR CONSULTATION: Syncope versus seizure. 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 Initial reports say that they witnessed two seizures; however, they questioned family members and there was a syncope. He had a few, three 16-ounce beers. He cannot recall if he felt lightheaded prior but he was noted to have a systolic blood pressure in the 80s. They gave him three liters of fluid and it came up to 104/72, heart rate of 70. Currently he is having an EEG. He offers no complaints of headaches, chest pain, shortness of breath, weakness in his arms or legs. CT shows no acute findings, only previous craniotomy with postsurgical changes. Chest x-ray shows left lower lobe possible pneumonia. They gave him Rocephin and Zithromax in the emergency room. PAST MEDICAL HISTORY: As stated. SOCIAL HISTORY: Drinks beer on the weekends. No tobacco. FAMILY HISTORY: Noncontributory. ALLERGIES: NONE. MEDICATIONS: He does take, he states, medication-al: 1. Topiramate 50 milligrams twice a day. PHYSICAL EXAMINATION: VITAL SIGNS: Temperature is 98.6, pulse 67, respiratory rate 17, blood pressure 132/80, satting at 98% room air. NECK: The neck is supple. HEART: Regular. NEUROLOGICAL EXAMINATION: He is awake, alert, he is fluent. His pupils are reactive. Face symmetrical. Tongue midline. Motor-al he does not exhibit any significant weakness or drift or leg lag. Cerebellar testing normal. Toes withdraws. Gait is withheld. Sensory normal. LABS: CBC is unremarkable. Neutrophil percentage 75.8. Chemistries: Ammonia is 41. Lactic acid was 2.5. GFR 77. Glucose 126. Calcium 8.2. CK was 90. Urine unremarkable. Toxicology positive for cannabinoids. Ethanol level was 58. Tylenol level was 2.9. Salicylate level was 1.7. IMAGING STUDIES: Chest x-ray shows left base pneumonia. CT head shows no acute findings. Left craniotomy with chronic postsurgical encephalomalacia left frontal lobe. The last MRI was in April of 2004 and it showed craniotomy changes as well. IMPRESSION: A 56-year-old man with either seizure versus syncope. He is having an EEG. 1. Will get an echocardiogram.. 2. Will continue to monitor him neuro status-al. 3. Treat him for his aspiration pneumonia. 4. Put him back on his topiramate. 5. He needs to start drinking. 6. He is positive for cannabinoids so would recommend risk factor modification for all substances such as alcohol, tobacco, marijuana at this point in time unless it is obtained legally. However alcohol may lower his threshold for seizures given that there is a craniotomy and scar from his surgery. 7. Maintain adequate hydration. 8. His vitals are stable now. He might have been a bit dehydrated. Have him follow up with his doctors in [place] this week. MD ANAMARIA Wyman/BETY /3:19 PM /4:17 PM
--- NOTE | 2017-04-03 17:53 | MG ---
cc: JAYMIE CARREAR M.D. Lab No: [id number] Date: Age: 56 Sex: M Race: REFERRING: SORAYA Macdonald. ROOM: -. Awake, drowsy asleep study. Photic stimulation. Hyperventilation. EEG ___ showed slowing in the left hemisphere. The patient had a mass over the left hemisphere and craniotomy performed a number of years ago. He came in with either syncope or seizure. He is only on topiramate 50 mg b.i.d. He had three beers with an elevated ethanol level and cannabinoids in his urine drug screen. DESCRIPTION OF RECORD: Some mild slowing from a theta frequency. Some left frontal craniotomy. There is some what looks like sharp waves over the left hemisphere which may be from the breach rhythm versus phase reversal. Photic stimulation has a driving response seen. Hyperventilation did not change the background. There is some mild slowing. IMPRESSION: Somewhat slow EEG due to possible encephalopathic process. There is abnormality over the left frontal region due to a craniotomy defect. This does not look like ongoing seizure activity. Some mild slowing only could be encephalopathic. Clinical correlation. MD ANAMARIA Wyman/BETY /5:30 PM /5:54 PM
[2017-04-03] MEDS ORDERED: METOPROLOL SUCCINATE 25 MG EXTENDED RELEASE TAB PO SCH (21:00)
[2017-04-04] MEDS ORDERED: cefTRIAXone INJ 1,000 MG in SODIUM CHLORIDE 0.9% INJ 100 ML IV SCH ×2
[2017-04-04] MEDS ORDERED: AZITHROMYCIN INJ 500 MG in SODIUM CHLOR 0.9% 250 ML INJ 250 ML IV SCH (01:00)
[2017-04-04] MEDS: PIPERACIL-TAZO 3.375 GM PREMIX 50 ML IV SCH ×2 (03:36→08:15)
[2017-04-04 04:00] VITALS: BP 129/82; PULSE 62; RESP 16; TEMP 96.7; O2SAT 96
[2017-04-04] MEDS: SODIUM CHLOR 0.9% 1000 ML INJ 1,000 ML IV SCH (05:45)
[2017-04-04] MEDS: DOCUSATE SODIUM 50 MG/SENNA 8.6 MG TAB PO SCH (08:17)
[2017-04-04] MEDS: TOPIRAMATE 25 MG TAB PO SCH (08:17)
[2017-04-04] MEDS: SODIUM CHLORIDE 0.9% FLUSH 10 ML FLUSH IV FLUSH SCH (08:18)
[2017-04-04 08:33] VITALS: BP_SYST 140; BP_SYST 145; BP_SYST 160; BP_DIAS 83; BP_DIAS 88; BP_DIAS 91; PULSE 63; RESP 18; TEMP 96.6; O2SAT 95
[2017-04-04 09:20] VITALS: O2SAT 98
--- NOTE | 2017-04-04 10:16 | HHI.DS ---
Discharge Summary Admission Date Apr 03, 2017 at 14:54 Discharge Date: Apr 04, 2017 Admitting Diagnosis syncope; h/o seizure; dehydration (1) Syncope ICD Code: R55 Diagnosis: Principal (2) PNA (pneumonia) ICD Code: J18.9 Diagnosis: Principal (3) CURTIS (acute kidney injury) ICD Code: N17.9 Diagnosis: Secondary (4) Dehydration ICD Code: E86.0 Diagnosis: Secondary (5) Seizure disorder ICD Code: G40.909 Diagnosis: Secondary Procedures none Brief History - From Admission This is a 56-year-old male with PMH of Anxiety, HTN, h/o Left Frontal Craniotomy for Tumor Resection and Seizure Disorder was brought to the ER by EMS secondary to AMS. Per initial report, pt noted to have witnessed seizure x2 , however upon further questioning and report from family members, pt had apparent syncopal event. Per pt, had been having ongoing weakness x2-3 wks, no fever, no chills. Today, had a few beers and felt acute weakness but doesn't recall any other events. Upon EMS arrival, pt noted to have BP 80's systolic, s /p 3L IVF total w/ BP 104/72, HR 70. Afebrile. O2 sat 100% on 2L NC. CBC unremarkable. K+ 3.2, creatinine 1.35, previously 0.86 on 03/28/13. Lactic Acid 2.4. Troponin negative. UA negative. Urine Drug Screen positive for Marijuana. Alcohol 58. Tylenol 2.9. Salicylate negative. CT Head w/ no acute findings, previous craniotomy w/ postsurgical changes. CXR w/ LLL PNA. S /p Rocephin/Zithro in ER. CBC/BMP: 04/03/17 1042 04/03/17 1042 Significant Findings Laboratory Tests Test 04/02/17 04/02/17 04/02/17 04/03/17 21:10 23:00 23:50 02:40 Red Blood Count 4.43 MIL/MM3 (4.50-5.90) Hematocrit 38.4 % (39.0-51.0) Monocytes (%) (Auto) 13.1 % (0.0-8.0) Monocytes # (Auto) 1.1 TH/MM3 (0-0.9) Potassium Level 3.2 MEQ/L (3.5-5.1) Chloride Level 108 MEQ/L (98-107) Carbon Dioxide Level 18.7 MEQ/L (21.0-32.0) Creatinine 1.35 MG/DL (0.60-1.30) Estimat Glomerular Filtration 55 ML/MIN (>89) Rate Random Glucose 144 MG/DL (74-106) Lactic Acid Level 2.4 mmol/L 2.5 mmol/L (0.4-2.0) (0.4-2.0) Calcium Level 8.1 MG/DL (8.5-10.1) Aspartate Amino Transf 13 U/L (15-37) (AST/SGOT) Ammonia 42 MCMOL/L (11-32) Troponin I LESS THAN 0.02 LESS THAN 0.02 NG/ML NG/ML (0.02-0.05) (0.02-0.05) Total Protein 6.0 GM/DL (6.4-8.2) Salicylates Level LESS THAN 1.7 MG/DL (2.8-20.0) Acetaminophen Level 2.9 MCG/ML (10.0-30.0) Ethyl Alcohol Level 58 MG/DL (0-5) Urine Mucus FEW /lpf (OCC) Urine Cannabinoids Screen POS (NEG) Test 04/03/17 10:42 Neutrophils (%) (Auto) 75.3 % (16.0-70.0) Monocytes (%) (Auto) 9.6 % (0.0-8.0) Chloride Level 114 MEQ/L (98-107) Estimat Glomerular Filtration 77 ML/MIN (>89) Rate Random Glucose 126 MG/DL (74-106) Calcium Level 8.2 MG/DL (8.5-10.1) Aspartate Amino Transf 13 U/L (15-37) (AST/SGOT) Ammonia 41 MCMOL/L (11-32) Troponin I LESS THAN 0.02 NG/ML (0.02-0.05) Total Protein 5.7 GM/DL (6.4-8.2) Albumin 3.3 GM/DL (3.4-5.0) Imaging Last Impressions Head CT 04/02/17 0000 Signed Impressions: Service Date/Time: Sunday, April 02, 2017 21:32 - CONCLUSION: No acute intracranial abnormality. 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 No recurrent mass demonstrated. Сергей Soriano MD Chest X-Ray 04/02/17 0000 Signed Impressions: Service Date/Time: Sunday, April 02, 2017 21:05 - CONCLUSION: Left base pneumonia. Сергей Soriano MD PE at Discharge GENERAL: Well-developed well-nourished. In no acute distress. SKIN: Warm and dry. No lesions noted. HEENT: Normocephalic. Pupils equal and round. Mucous membranes pink and moist. CARDIOVASCULAR: Regular rate and rhythm. No murmur appreciated. RESPIRATORY: No accessory muscle use. Clear to auscultation. Left basilar crackles. GASTROINTESTINAL: Abdomen soft, non-tender, nondistended. Bowel sounds x4. MUSCULOSKELETAL: No obvious deformities. No clubbing or cyanosis. No edema. NEUROLOGICAL: Awake and alert. No focal neurological deficits. Moves upper and lower extremities spontaneously. Normal speech. PSYCHIATRIC: Appropriate mood and affect; insight and judgment normal. Pt update on day of discharge In bed,. No fever or chills. No cough. Satting well on room air. No n/v/d/c. No dizziness or lightheadedness. No seizure. Ambulated without difficulty Hospital Course 56-year-old male with PMH of Anxiety, HTN, h/o Left Frontal Craniotomy for Tumor Resection and Seizure Disorder who presented after syncopal episode Syncope: Possibly secondary to dehydration vs seizure vs other. Reviewed: Troponin negative 2, trending. Creatinine 1.35, bicarbonate 18.7, glucose 144, lactic acid 2.5. Alcohol 58. UDS positive for cannabis. Head CT with previous craniotomy and postsurgical encephalomalacia of the left frontal lobe, no acute findings. EKG with NSR, rate 58, no significant change from previous EKG in 2004. -Echocardiogram rev normal EF 55% -EEG no acute abn, changes constistent to previous injury, no seizure -Monitor on telemetry. -Consult neurology, appreciate recommendations. Patient to follow up as OP with his neuro in [place] Possible aspiration pneumonitis: Asymptomatic. CXR personally reviewed w/ vague LLL infiltrate. Afebrile with no leukocytosis. Cover with IV Zosyn for now, plan for transition to oral Levaquin if no further signs of infection or respiratory symptoms. Incentive spirometry. Albuterol as needed. CURTIS: Creatinine 1.35, previously 0.85 on 03/28/13. IVF for hydration, repeat labs pending. Seizure Disorder/migraines: h/o Left Frontal Craniotomy for tumor resection 10yrs ago, on Topamax for prophylaxis, compliant w/ meds, no apparent seizure x10yrs. Continue home medications. Seizure Precautions. Neurology consulted as above. Elevated ammonia: Ammonia 42. LFTs essentially within normal limits. Suspect secondary to dehydration. Repeat ammonia level. Hypertension: BP was soft at admission. The patient is not orthostatic. Holding lisinopril with CURTIS. Resume metoprolol as tolerated. Monitor. Hypokalemia: Potassium 3.2 at admission. Replaced in the ED. Magnesium within normal limits. Repeat labs pending. DVT Prophylaxis: SCD/Teds. Discharge in stable condition. To follow up as OP with PCP and consultants. Pt Condition on Discharge: Stable Discharge Disposition: Discharge Home Discharge Time: > 30 minutes Discharge Instructions DIET: Follow Instructions for: As Tolerated, No Restrictions Activities you can perform: Regular-No Restrictions Follow up Referrals: Neurology - 1 Week PCP Follow-up - 3-5 Days New Medications: Clindamycin (Clindamycin) 300 Mg Cap 300 MG PO TID Infection #21 Ref 0 CAP Lactobacillus Acidophilus (Lactinex) 1 Chew 1 TAB CHEW DAILY Nutritional Supplement #30 Ref 0 TAB Continued Medications: Albuterol 18 GM Inh (Ventolin Hfa 18 GM Inh) 90 Mcg/Act Aer 2 PUFF INH Q4-6H PRN SHORTNESS OF BREATH #[address] (Aspirin 81) 81 Mg Tabdr 81 MG PO DAILY Ref 0 TAB Atorvastatin (Atorvastatin) 10 Mg Tab 10 MG PO HS Cholesterol Management #30 Ref 0 TAB Fluticasone Nasal [place] (Fluticasone Nasal [place]) 50 Mcg/Act Naspr 50 MCG EACH NARE HS 50 mcg/spray Allergy Management #1 Ref 0 BOTTLE Lisinopril (Lisinopril) 20 Mg Tab 20 MG PO DAILY #30 Ref 0 TAB Metoprolol Succinate ER 24 HR (Metoprolol Succinate ER 24 HR) 25 Mg Tab 25 MG PO HS #30 Ref 0 TAB Topiramate (Topamax) 50 Mg Tab 50 MG PO BID Control Seizures #60 Ref 0 TAB Ana Paula Peña MD Apr 04, 2017 10:16
[2017-04-04] MEDS ORDERED: CLIN1CAP6 PO (10:19)
[2017-04-04] MEDS ORDERED: LACTCHW3 CHEW (10:19)
[2017-04-04 11:20] VITALS: PULSE 59
== END 2017-04-04 13:00 | disposition home or self-care (01) | DRG 312 ==
LOC: NEPC 21:00 → NEDA 04-03 00:24 → NEPHCDU 04-03 02:49 → OBSVTOIN 04-03 14:54 → N05B 04-03 16:31
PROVIDERS: ADMIT Hospitalist; ATTEND Hospitalist
DX: R55 Syncope and collapse (principal); J69.0 Pneumonitis due to inhalation of food and vomit; N17.9 Acute kidney failure, unspecified; G93.89 Other specified disorders of brain; G40.209 Localization-related (focal) (partial) symptomatic epilepsy and epileptic syndromes with complex partial seizures, not intractable, without status epilepticus; I10 Essential (primary) hypertension; E86.0 Dehydration; E87.6 Hypokalemia; E78.00 Pure hypercholesterolemia, unspecified; Z85.841 Personal history of malignant neoplasm of brain; Z92.3 Personal history of irradiation
CPT/HCPCS: 70450; 71010; 80053; 80307; 81001; 82140; 82550; 83605; 83735; 84484; 85025; 87040; 93005; 93306; 94150; 95819; 96361; 96365; 96366; 96375; G8987-GP; G8988-GP; J0456; J0696; J2543; J7030; J7050